=== PATIENT | male | born 1970 | race Caucasian/White ===

== ENCOUNTER 2020-10-11 07:44 | Day surgery (SDC) | payer BC ==
[2020-10-07 15:53] VITALS: BMI 28.1
[~2020-10-11 07:44] MED LIST: LACTATED RINGERS 1,000 ML IV SCH; LIDOCAINE 1% (10MG/ML) FOR IV START INTRADERMA PRN
[2020-10-11 08:06] VITALS: RESP 16; TEMP 98.3
[2020-10-11] MEDS ORDERED: PROPOFOL 10 MG/ML 20 ML VIAL IV ONE (08:27)
--- NOTE | 2020-10-11 08:31 | P.GSHP ---
History of Present Illness H&P Date: 10/11/20 Chief Complaint: colon cancer screening patient here today for colonoscopy. He has not had 1 previously. No bowel complaints. No family history of colon cancer. Past Medical History Past Medical History: Hyperlipidemia, Hypertension History of Any Multi-Drug Resistant Organisms: None Reported Past Surgical History: No Surgical Hx Reported Additional Past Anesthesia/Blood Transfusion Reaction / Comment(s): no anesthesia hx Past Psychological History: No Psychological Hx Reported Smoking Status: Never smoker Past Alcohol Use History: Occasional Past Drug Use History: None Reported Additional Drug Use History / Comment(s): cbd oil @ hs - Past Family History Mother Family Medical History: No Reported History Medications and Allergies Home Medications Medication Instructions Recorded Confirmed Type Atorvastatin [Lipitor] 10 mg PO DAILY 10/07/20 10/11/20 History Cannabidiol (Cbd) [Epidiolex] 1 dose PO DIRECTED 10/07/20 10/11/20 History Multivit-Min/Folic/Vit K/Lycop 1 each PO DAILY 10/07/20 10/11/20 History [Men's Multivitamin Tablet] Datil-3 Fatty Acids/Fish Oil [Fish 1 each PO DAILY 10/07/20 10/11/20 History Oil 1,000 mg Softgel] Zyrtec 1 tab PO DAILY 10/07/20 10/11/20 History lisinopriL 20 mg PO DAILY 10/07/20 10/11/20 History Allergies Allergy/AdvReac Type Severity Reaction Status Date / Time No Known Allergies Allergy Verified 10/11/20 08:15 Surgical - Exam Vital Signs Temp Pulse Resp BP Pulse Ox 98.3 F 84 16 146/98 97 10/11/20 08:03 10/11/20 08:03 10/11/20 08:03 10/11/20 08:03 10/11/20 08:03 Physical exam: General: Well-developed, well-nourished HEENT: Normocephalic, sclerae nonicteric Abdomen: Nontender, nondistended Extremities: No edema Neuro: Alert and oriented Assessment and Plan (1) Colon cancer screening Narrative/Plan: Will proceed with colonoscopy Current Visit: Yes Status: Acute Code(s): Z12.11 - ENCOUNTER FOR SCREENING FOR MALIGNANT NEOPLASM OF COLON SNOMED Code(s): 590441289
--- NOTE | 2020-10-11 08:46 | P.PCN ---
Date of Procedure: 10/11/20 Procedure(s) Performed: PREOPERATIVE DIAGNOSIS: colon cancer screening POSTOPERATIVE DIAGNOSIS: normal exam PROCEDURE: Colonoscopy ANESTHESIA: MAC SURGEON: Jose D Sands M.D. SPECIMENS: none ENDOSCOPIC PROCEDURE: The patient was placed on the endoscopy table in the left decubitus position. The Olympus colonoscope was inserted into the anus and passed under direct visualization to the base of the cecum. The appendiceal orifice was visualized. From that point the scope was slowly withdrawn inspecti ng all surfaces carefully. There were no neoplastic inflammatory or polypoid lesions throughout the cecum, ascending, transverse, descending, sigmoid and rectum. There was no visible diverticulosis noted. Digital rectal examination was normal. The patient was taken to the recovery room in stable condition per anesthesia guidelines. RECOMMENDATIONS: resume diet. Follow-up colonoscopy 10 years.
[2020-10-11 09:10] VITALS: BP 137/88; PULSE 67
== END 2020-10-11 09:32 | disposition home or self-care (01) ==
LOC: ORWHC2ENDO 07:44
PROVIDERS: ATTEND Surgery
DX: Z12.11 Encounter for screening for malignant neoplasm of colon (principal); E78.5 Hyperlipidemia, unspecified; I10 Essential (primary) hypertension; Z79.899 Other long term (current) drug therapy; M25.811 Other specified joint disorders, right shoulder
CPT/HCPCS: J2704; G0121

== ENCOUNTER → 2024-06-30 | Outpatient (CLI) | payer BC ==
--- NOTE | 2024-07-01 08:44 | MR ---
EXAMINATION TYPE: MR knee LT wo con DATE OF EXAM: 06/30/2024 COMPARISON: NONE HISTORY: Left knee pain for 2 weeks due to mis-step going down stairs TECHNIQUE: Multiplanar, multisequence images of the knee is performed without IV contrast. FINDINGS: MEDIAL MENISCUS: Faint increased signal posterior horn does not extend to the articular surface. LATERAL MENISCUS: Anterior and posterior horns are intact without tear. CRUCIATE LIGAMENTS: The anterior and posterior cruciate ligaments are intact and unremarkable. COLLATERAL LIGAMENTS: The medial collateral ligament and lateral collateral ligament complex are inta ct and unremarkable. EXTENSOR MECHANISM: Visualized quadriceps and patellar tendons are intact. EFFUSION: No significant suprapatellar joint effusion. POPLITEAL CYST: No popliteal/bowie cyst. TRICOMPARTMENT SPACES: Mild tricompartment joint space loss and spurring. CARTILAGE: Some cartilaginous loss medial tibiofemoral compartment. No significant chondromalacia pat jose. BONE MARROW SIGNAL: No focal abnormal marrow signal is appreciated. OTHER: Focal mild/moderate subcutaneous edema anterior superficial infrapatellar level. IMPRESSION: 1. 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 2. Suspect intrasubstance tear posterior horn medial meniscus. No full-thickness meniscal or ligament ous tear is seen. [facility], , 07/01/2024 8:42 AM
== END | disposition home or self-care (01) ==
LOC: RADMRIMAIN 21:45
PROVIDERS: ATTEND Orthopaedic Surgery
DX: M17.12 Unilateral primary osteoarthritis, left knee (principal); M23.8X2 Other internal derangements of left knee